=== PATIENT | male | born 1955 | race African-American/Black ===

== ENCOUNTER 2025-08-11 13:44 | Emergency (ER) | payer MEDICARE ==
[2025-08-11 14:24] LABS: #Basophils 0.06 10x3/uL (0.0-0.2); #Eosinophils 0.19 10x3/uL (0.0-0.7); #Monocytes 0.93 10x3/uL (0.11-0.59); #Neutrophils 5.40 10x3/uL (1.40-6.50); %Basophils 0.7 % (0.0-1.0); %Eosinophils 2.2 % (0.0-10.0); %Lymphocytes 22.5 % (21.0-51.0); %Monocytes 10.9 % (0.0-10.0); %Neutrophils 63.3 % (42.0-75.0); Hematocrit 32.2 % (42.0-52.0); Hemoglobin 9.9 g/dL (14.0-18.0); Mean Corpuscular Hemoglobin 27.6 pg (27.0-31.0); Mean Corpuscular Volume 89.7 fL (78.0-98.0); Platelet Count 339 10x3/uL (130-400); Red Blood Cell (RBC) Count 3.59 mill/uL (4.70-6.10); White Blood Cell (WBC) Count 8.53 10x3/uL (4.8-10.8)
[2025-08-11 14:38] LABS: ALT (SGPT) 9 U/L (Less than 45); AST (SGOT) 18 U/L (11-34); Albumin 3.3 g/dL (3.1-4.5); Alkaline Phosphatase 82 U/L (40-110); Anion Gap 12 mmol/L (10-20); BUN (Urea Nitrogen) 9 mg/dL (8.4-25.7); Bilirubin, Total 0.5 mg/dL (0.3-1.2); Calc. Creatinine Clearance 0 mL/min (70-130); Calcium 9.4 mg/dL (7.8-10.44); Carbon Dioxide 26 mmol/L (23-31); Chloride 103 mmol/L (98-107); Globulin 3.5 g/dL (2.4-3.5); Glucose 87 mg/dL (80-115); Potassium 3.9 mmol/L (3.5-5.1); Sodium 137 mmol/L (136-145)
[2025-08-11 14:41] LABS: INR-International Normal Ratio 1.1; Prothrombin Time 14.1 sec (12.0-14.7)
[2025-08-11 14:42] LABS: PTT 39.2 sec (22.9-36.1)
[2025-08-11 16:36] LABS: CAUTI Indications for Culture < 2yrs of age; Glucose, Urine (Dipstick) Normal (Negative); Leukocyte 250 Leu/uL (Negative); Protein, Urine (Dipstick) Negative (Neg-Trace); Specific Gravity, Urine 1.024 (1.002-1.036)
[2025-08-11 16:45] LABS: Bacteria/HPF 1+ HPF (None Seen)
[2025-08-11 16:46] LABS: Urine Culture Reflex Yes Yes
== END 2025-08-11 17:05 | disposition home or self-care (01) ==
LOC: ERS 13:44
DX: R19.04 Left lower quadrant abdominal swelling, mass and lump (principal); F17.200 Nicotine dependence, unspecified, uncomplicated; Z55.6 Problems related to health literacy
CPT/HCPCS: 74177; 80053; 81001; 83605; 85025; 85610; 85730; 86141; 87040; 87086; 93005

== ENCOUNTER 2025-08-20 08:58 | Inpatient (IN) | payer MEDICARE ==
[2025-08-20 10:16] LABS: #Basophils 0.06 10x3/uL (0.0-0.2); #Eosinophils 0.23 10x3/uL (0.0-0.7); #Monocytes 0.90 10x3/uL (0.11-0.59); #Neutrophils 5.96 10x3/uL (1.40-6.50); %Basophils 0.6 % (0.0-1.0); %Eosinophils 2.5 % (0.0-10.0); %Lymphocytes 22.9 % (21.0-51.0); %Monocytes 9.7 % (0.0-10.0); %Neutrophils 64.0 % (42.0-75.0); Hematocrit 32.3 % (42.0-52.0); Hemoglobin 9.8 g/dL (14.0-18.0); Mean Corpuscular Hemoglobin 26.8 pg (27.0-31.0); Mean Corpuscular Volume 88.5 fL (78.0-98.0); Platelet Count 361 10x3/uL (130-400); Red Blood Cell (RBC) Count 3.65 mill/uL (4.70-6.10); White Blood Cell (WBC) Count 9.31 10x3/uL (4.8-10.8)
[2025-08-20 10:21] LABS: ALT (SGPT) 10 U/L (Less than 45); AST (SGOT) 22 U/L (11-34); Albumin 3.0 g/dL (3.1-4.5); Alkaline Phosphatase 69 U/L (40-110); Anion Gap 15 mmol/L (10-20); BUN (Urea Nitrogen) 11 mg/dL (8.4-25.7); Bilirubin, Total 0.6 mg/dL (0.3-1.2); Calc. Creatinine Clearance 0 mL/min (70-130); Calcium 9.3 mg/dL (7.8-10.44); Carbon Dioxide 24 mmol/L (23-31); Chloride 105 mmol/L (98-107); Globulin 3.7 g/dL (2.4-3.5); Glucose 79 mg/dL (80-115); Potassium 3.8 mmol/L (3.5-5.1); Sodium 140 mmol/L (136-145)
[2025-08-20] MEDS ORDERED: hydrALAZINE 20 MG/ML VIAL SLOW IVP PRN (10:47)
[2025-08-20] MEDS ORDERED: Ondansetron PF 4 MG/2 ML Vial IVP PRN (10:47)
[2025-08-20] MEDS ORDERED: Dextrose 50% Abboject 50 ML SYRINGE SLOW IVP PRN (10:47)
[2025-08-20] MEDS ORDERED: Glucagon 1 MG/ML KIT IM PRN (10:47)
[2025-08-20] MEDS ORDERED: Ondansetron PF 4 MG/2 ML Vial ONE (12:14)
[2025-08-20] MEDS ORDERED: Lidocaine 1% PF 5 ML VIAL ONE (12:14)
[2025-08-20] MEDS ORDERED: fentaNYL PF 100 MCG/2 ML SYRINGE ONE ×4 (12:15→16:01)
[2025-08-20] MEDS ORDERED: PROPOFOL 200 MG/20 ML VIAL ONE (14:17)
[2025-08-20] MEDS ORDERED: PHENYLEPHRINE-NS 100 MCG/ML 10 ML SYRINGE ONE (14:17)
[2025-08-20 19:43] VITALS: BMI 34.2
[2025-08-20] MEDS: Senokot S 8.6-50 MG TAB PO SCH (23:36)
[2025-08-20] MEDS: Methocarbamol 500 MG TAB PO PRN (23:49)
[2025-08-21 05:00] LABS: #Basophils 0.03 10x3/uL (0.0-0.2); #Eosinophils Less than 0.03 10x3/uL (0.0-0.7); #Monocytes 1.29 10x3/uL (0.11-0.59); #Neutrophils 8.63 10x3/uL (1.40-6.50); %Basophils 0.3 % (0.0-1.0); %Eosinophils 0.2 % (0.0-10.0); %Lymphocytes 12.6 % (21.0-51.0); %Monocytes 11.2 % (0.0-10.0); %Neutrophils 75.3 % (42.0-75.0); Hematocrit 28.3 % (42.0-52.0); Hemoglobin 8.6 g/dL (14.0-18.0); Mean Corpuscular Hemoglobin 26.8 pg (27.0-31.0); Mean Corpuscular Volume 88.2 fL (78.0-98.0); Platelet Count 349 10x3/uL (130-400); Red Blood Cell (RBC) Count 3.21 mill/uL (4.70-6.10); White Blood Cell (WBC) Count 11.47 10x3/uL (4.8-10.8)
[2025-08-21 05:22] LABS: ALT (SGPT) 7 U/L (Less than 45); AST (SGOT) 33 U/L (11-34); Albumin 2.7 g/dL (3.1-4.5); Alkaline Phosphatase 61 U/L (40-110); Anion Gap 9 mmol/L (10-20); BUN (Urea Nitrogen) 14 mg/dL (8.4-25.7); Bilirubin, Total 0.3 mg/dL (0.3-1.2); Calc. Creatinine Clearance 141 mL/min (70-130); Calcium 8.7 mg/dL (7.8-10.44); Carbon Dioxide 28 mmol/L (23-31); Chloride 104 mmol/L (98-107); Globulin 3.1 g/dL (2.4-3.5); Glucose 126 mg/dL (80-115); Magnesium 1.5 mg/dL (1.6-2.6); Potassium 3.9 mmol/L (3.5-5.1); Sodium 137 mmol/L (136-145)
[2025-08-21] MEDS ORDERED: Enoxaparin 40 MG (0.4 mL) SYRINGE SC SCH (09:00)
[2025-08-21] MEDS: Magnesium Oxide 400 MG TAB PO SCH (10:06)
[2025-08-21] MEDS: Acetaminophen 325 MG TAB PO PRN (10:51)
[2025-08-21 11:55] LABS: #Basophils 0.04 10x3/uL (0.0-0.2); #Eosinophils 0.12 10x3/uL (0.0-0.7); #Monocytes 1.27 10x3/uL (0.11-0.59); #Neutrophils 9.76 10x3/uL (1.40-6.50); %Basophils 0.3 % (0.0-1.0); %Eosinophils 0.9 % (0.0-10.0); %Lymphocytes 20.0 % (21.0-51.0); %Monocytes 9.0 % (0.0-10.0); %Neutrophils 69.4 % (42.0-75.0); Hematocrit 29.6 % (42.0-52.0); Hemoglobin 9.2 g/dL (14.0-18.0); Mean Corpuscular Hemoglobin 27.5 pg (27.0-31.0); Mean Corpuscular Volume 88.6 fL (78.0-98.0); Platelet Count 348 10x3/uL (130-400); Red Blood Cell (RBC) Count 3.34 mill/uL (4.70-6.10); White Blood Cell (WBC) Count 14.06 10x3/uL (4.8-10.8)
[2025-08-21 11:56] LABS: Hematocrit 28.9 % (42.0-52.0); Hemoglobin 8.6 g/dL (14.0-18.0)
[2025-08-21 12:12] LABS: Magnesium 1.6 mg/dL (1.6-2.6)
[2025-08-21 18:54] VITALS: BMI 34.2
[2025-08-21] MEDS: Enoxaparin 40 MG (0.4 mL) SYRINGE SC SCH (21:01)
[2025-08-22 06:07] LABS: #Basophils 0.05 10x3/uL (0.0-0.2); #Eosinophils 0.21 10x3/uL (0.0-0.7); #Monocytes 0.86 10x3/uL (0.11-0.59); #Neutrophils 5.22 10x3/uL (1.40-6.50); %Basophils 0.5 % (0.0-1.0); %Eosinophils 2.2 % (0.0-10.0); %Lymphocytes 33.1 % (21.0-51.0); %Monocytes 9.1 % (0.0-10.0); %Neutrophils 54.9 % (42.0-75.0); Hematocrit 26.9 % (42.0-52.0); Hemoglobin 8.0 g/dL (14.0-18.0); Mean Corpuscular Hemoglobin 26.7 pg (27.0-31.0); Mean Corpuscular Volume 89.7 fL (78.0-98.0); Platelet Count 287 10x3/uL (130-400); Red Blood Cell (RBC) Count 3.00 mill/uL (4.70-6.10); White Blood Cell (WBC) Count 9.50 10x3/uL (4.8-10.8)
[2025-08-22 06:25] LABS: ALT (SGPT) 10 U/L (Less than 45); AST (SGOT) 14 U/L (11-34); Albumin 2.5 g/dL (3.1-4.5); Alkaline Phosphatase 58 U/L (40-110); Anion Gap 14 mmol/L (10-20); BUN (Urea Nitrogen) 14 mg/dL (8.4-25.7); Bilirubin, Total 0.4 mg/dL (0.3-1.2); Calc. Creatinine Clearance 143 mL/min (70-130); Calcium 8.6 mg/dL (7.8-10.44); Carbon Dioxide 25 mmol/L (23-31); Chloride 103 mmol/L (98-107); Globulin 3.0 g/dL (2.4-3.5); Glucose 87 mg/dL (80-115); Potassium 4.0 mmol/L (3.5-5.1); Sodium 138 mmol/L (136-145)
[2025-08-23 09:11] LABS: #Basophils 0.05 10x3/uL (0.0-0.2); #Eosinophils 0.27 10x3/uL (0.0-0.7); #Monocytes 0.94 10x3/uL (0.11-0.59); #Neutrophils 7.10 10x3/uL (1.40-6.50); %Basophils 0.5 % (0.0-1.0); %Eosinophils 2.5 % (0.0-10.0); %Lymphocytes 21.0 % (21.0-51.0); %Monocytes 8.8 % (0.0-10.0); %Neutrophils 66.8 % (42.0-75.0); Hematocrit 29.1 % (42.0-52.0); Hemoglobin 8.6 g/dL (14.0-18.0); Mean Corpuscular Hemoglobin 26.8 pg (27.0-31.0); Mean Corpuscular Volume 90.7 fL (78.0-98.0); Platelet Count 299 10x3/uL (130-400); Red Blood Cell (RBC) Count 3.21 mill/uL (4.70-6.10); White Blood Cell (WBC) Count 10.63 10x3/uL (4.8-10.8)
[2025-08-23 09:14] LABS: ALT (SGPT) 9 U/L (Less than 45); AST (SGOT) 16 U/L (11-34); Albumin 2.6 g/dL (3.1-4.5); Alkaline Phosphatase 61 U/L (40-110); Anion Gap 13 mmol/L (10-20); BUN (Urea Nitrogen) 21 mg/dL (8.4-25.7); Bilirubin, Total 0.4 mg/dL (0.3-1.2); Calc. Creatinine Clearance 127 mL/min (70-130); Calcium 8.8 mg/dL (7.8-10.44); Carbon Dioxide 25 mmol/L (23-31); Chloride 102 mmol/L (98-107); Globulin 3.3 g/dL (2.4-3.5); Glucose 117 mg/dL (80-115); Potassium 4.2 mmol/L (3.5-5.1); Sodium 136 mmol/L (136-145)
[2025-08-24 05:24] LABS: #Basophils 0.05 10x3/uL (0.0-0.2); #Eosinophils 0.25 10x3/uL (0.0-0.7); #Monocytes 1.09 10x3/uL (0.11-0.59); #Neutrophils 6.61 10x3/uL (1.40-6.50); %Basophils 0.5 % (0.0-1.0); %Eosinophils 2.4 % (0.0-10.0); %Lymphocytes 23.1 % (21.0-51.0); %Monocytes 10.4 % (0.0-10.0); %Neutrophils 63.2 % (42.0-75.0); Hematocrit 28.2 % (42.0-52.0); Hemoglobin 8.6 g/dL (14.0-18.0); Mean Corpuscular Hemoglobin 27.0 pg (27.0-31.0); Mean Corpuscular Volume 88.4 fL (78.0-98.0); Platelet Count 327 10x3/uL (130-400); Red Blood Cell (RBC) Count 3.19 mill/uL (4.70-6.10); White Blood Cell (WBC) Count 10.45 10x3/uL (4.8-10.8)
[2025-08-24 05:36] LABS: Anion Gap 11 mmol/L (10-20); BUN (Urea Nitrogen) 16 mg/dL (8.4-25.7); Calc. Creatinine Clearance 139 mL/min (70-130); Calcium 9.4 mg/dL (7.8-10.44); Carbon Dioxide 27 mmol/L (23-31); Chloride 103 mmol/L (98-107); Glucose 83 mg/dL (80-115); Potassium 4.0 mmol/L (3.5-5.1); Sodium 137 mmol/L (136-145)
[2025-08-24 08:40] VITALS: BP 134/74; TEMP 97.6
== END 2025-08-24 18:15 | disposition home or self-care (01) | DRG 580 ==
LOC: ERS 08:58 → ERHOLD 10:47 → SURG A 11:54
PROVIDERS: ADMIT Surgery; ATTEND Surgery
PROC: 0Y960ZZ Drainage of Left Inguinal Region, Open Approach (ICD-10-PCS; principal; 2025-08-20)
PROC: 3E03329 Introduction of Other Anti-infective into Peripheral Vein, Percutaneous Approach (ICD-10-PCS; 2025-08-20)
DX: L02.214 Cutaneous abscess of groin (principal); I96 Gangrene, not elsewhere classified; N39.0 Urinary tract infection, site not specified; F12.10 Cannabis abuse, uncomplicated; F14.10 Cocaine abuse, uncomplicated; F17.210 Nicotine dependence, cigarettes, uncomplicated; I10 Essential (primary) hypertension; Z98.890 Other specified postprocedural states; Z90.79 Acquired absence of other genital organ(s)
CPT/HCPCS: 36415; 80048; 80053; 83735; 84100; 85025; 87070; 87205; 88304; 88341; 88342; 96365; 96375; 96376; 97139; J1100; J1650; J2270; J2272; J2405; J2543; J2704